=== PATIENT | female | born 1965 | race Caucasian/White ===

== ENCOUNTER → 2021-09-18 12:29 | Outpatient (CLI) | payer BC, SELFPAY ==
--- NOTE | ~2021-09-18 | MM_ITS ---
EXAMINATION: MM screening neha BI w cass HISTORY: Screening TECHNIQUE: Craniocaudal and mediolateral oblique 3-D tomosynthesis images were obtained and synthetic 2-D images were generated. CAD analysis was submitted and interpreted. COMPARISON: Comparison to multiple prior studies sequentially, with oldest reviewed study dated 08/2014. BREAST PARENCHYMAL COMPOSITION: There are scattered areas of fibroglandular density. FINDINGS: There is no evidence of suspicious mass, calcification, or architectural distortion to sugg est malignancy in either breast. There has been no suspicious interval change. IMPRESSION: 1. No mammographic evidence of malignancy. 2. Recommend routine screening mammography in one year. BI-RADS Category 1: Negative Reviewed, dictated and finalized at location A. 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
== END ==
PROVIDERS: PCP Family Medicine Sports Medicine; Visit Provider Obstetrics & Gynecology
DX: Z12.31 Encounter for screening mammogram for malignant neoplasm of breast (principal)
CPT/HCPCS: 77063; 77067

== ENCOUNTER 2022-11-01 09:11 | Emergency (ER) | payer BC, SELFPAY ==
--- NOTE | 2022-11-01 09:17 | ED.EAR ---
HPI - Ear Problem General Chief complaint: Ear Stated complaint: EARS CLOGGED Source: patient and RN notes reviewed History of Present Illness HPI Narrative: 57 yo F presents to urgent care with complaints of both ears feeling clogged since Saturday. Pt denies any ear pain but reports some pressure. Denies any fevers, chills, GREEN, sore throat, or dizziness. Related Data Home Medications Medication Instructions Recorded Confirmed bupropion HCl 100 mg tablet,12 hr 100 mg PO DAILY 08/23/22 11/01/22 sustained-release (Wellbutrin SR) buspirone 10 mg tablet 15 mg PO BID 08/23/22 11/01/22 citalopram 40 mg tablet 40 mg PO DAILY 08/23/22 11/01/22 Allergies Allergy/AdvReac Type Severity Reaction Status Date / Time No Known Allergies Allergy Verified 11/01/22 09:21 Review of Systems Review of Systems: Pertinent positives and pertinent negatives per HPI. FOR[facility]LY [facility] Past Medical History Medical History (Updated 11/01/22 @ 09:32 by Cecilia Alberts APRN) Anxiety Depression Screening for breast cancer Family History Family History Mother Hypertension Grandparent Hypertension Social History Social History (Updated 08/23/22 @ 08:51 by Loren Fragoso CMA) Smoking status: Never smoker Alcohol intake: current Alcohol use details: occasional Substance use: never Living arrangements: with family Occupation/Education: occupation Gender identity (if verbalized by the patient): Female Sexual Orientation (if Verbalized by the Patient): Straight or Heterosexual Comments At the time of my signature, I reviewed and agree with the nursing past medical, surgical, social, and family history. There is no relevant family history pertinent to the patient complaint. Exam Narrative: GENERAL: This is a well-nourished, well-developed patient, in no apparent distress. HEAD: normocephalic, atraumatic. EYES: PERRL. Sclera clear/white. Vision is grossly intact. EARS: External ears normal. Cerumen impaction with both ears. TMs not visualized. NOSE: External nose normal with no obvious nasal discharge, nares without redness, no rhinorrhea. THROAT: Mucous membranes moist, posterior pharynx clear. NECK: Neck supple, non-tender without lymphadenopathy, masses or thyromegaly. CARDIOVASCULAR: Regular rate RESPIRATORY: no respiratory distress GASTROINTESTINAL: Abdomen soft, non-tender, nondistended. Bowel sounds are active. No hepato-splenomegaly, or palpable masses. No guarding. SKIN: warm, intact with no suspicious lesions or rash, good texture and turgor. NEURO: awake, alert, and oriented to person, place and time. There were no obvious focal neurologic abnormalities. Course Course Level of Care: Express Care Visit Vital Signs Vital signs: Vital Signs Temperature 98.4 F 11/01/22 09:19 Pulse Rate 75 11/01/22 09:19 Respiratory Rate 16 11/01/22 09:19 Blood Pressure 99/76 L 11/01/22 09:19 Pulse Oximetry 100 11/01/22 09:19 Oxygen Delivery Room Air 11/01/22 09:19 Temperature 98.4 F 11/01/22 09:19 Pulse Rate 75 11/01/22 09:19 Respiratory Rate 16 11/01/22 09:19 Blood Pressure 99/76 L 11/01/22 09:19 Pulse Oximetry 100 11/01/22 09:19 Oxygen Delivery Room Air 11/01/22 09:19 reviewed Procedures Ear Wax Removal Both Ears: Ear Wax Removal Date: 11/01/22 Ear Wax Removal Time: 09:45 Cerumenolytic Used: 5-10% Sodium Bicarb solution Results: Re-examined: other (unsuccessful after entire bottle of solution was used to irrigate. ) Ear Canal Exam: atraumatic Patient Tolerated Procedure: well Complications: no problems Technique: ear canal irrigated Medical Decision Making MDM Narrative Medical decision making narrative: Pt was advised to follow up with ENT if Debrox drops were unsuccessful. Differential Diagnosis Differential Diagnosis: cerumen impaction, otitis media, URI V
[2022-11-01 09:19] VITALS: BP 99/76; PULSE 75; RESP 16; TEMP 36.9; O2SAT 100
== END 2022-11-01 09:58 | disposition home or self-care (01) ==
PROVIDERS: Emergency Provider Nurse Practitioner Family; PCP Family Medicine Sports Medicine
DX: H61.23 Impacted cerumen, bilateral (principal); F41.9 Anxiety disorder, unspecified; F32.A Depression, unspecified
CPT/HCPCS: 69209; 99213; A9270; G0463

== ENCOUNTER 2025-06-10 11:39 | Outpatient (CLI) | payer BC, SELFPAY ==
--- NOTE | ~2025-06-10 | MM_ITS ---
EXAMINATION: MM screening neha BI w cass HISTORY: Screening TECHNIQUE: Craniocaudal and mediolateral oblique 3-D tomosynthesis images were obtained and synthetic 2-D images were generated. CAD analysis was submitted and interpreted. COMPARISON: Comparison to multiple prior studies sequentially, with oldest reviewed study dated , 08/04/2011 BREAST PARENCHYMAL COMPOSITION: The breasts are heterogeneously dense, which may obscure small masses. FINDINGS: There is no evidence of suspicious mass, calcification, or architectural distortion to suggest malignancy in either breast. IMPRESSION: 1. No mammographic evidence of malignancy. 2. Recommend routine screening mammography in one year. BI-RADS Category 1: Negative Reviewed, dictated and finalized at location B. 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
== END 2025-06-10 11:40 | disposition home or self-care (01) ==
LOC: MICIMG 11:40
PROVIDERS: PCP Student in an Organized Health Care Education/Training Program; Visit Provider Student in an Organized Health Care Education/Training Program
DX: Z12.31 Encounter for screening mammogram for malignant neoplasm of breast (principal)
CPT/HCPCS: 77063; 77067